=== PATIENT | male | born 1980 | race Caucasian/White ===

== ENCOUNTER 2019-08-08 01:53 | Outpatient (RCR) | payer OTHER, SELFPAY ==
[2019-07-18] MEDS: Normal Saline Flush 10 ML SYR IVP (12:46)
[2019-07-18 13:08] LABS: Abs Immature Grans 0.13 k/cumm (0.0-0.09); Absolute Eosinophil Count 0.03 k/cumm (0.0-0.7); Absolute Lymphocyte Count 0.81 k/cumm (1.2-3.4); Absolute Monocyte Count 0.01 k/cumm (0.11-0.7); Absolute Neutrophil Count 7.09 k/cumm (1.2-6.7); Eosinophils % 0.4; HCT 41.7 % (40.0-50.0); HGB 15.1 g/dL (13.5-17.5); Immature Grans % 1.6 %; Mean Corp. HGB Concentration 36.2 g/dL (32.0-36.0); Mean Corpuscular Hemoglobin 31.4 pg (27.0-33.0); Mean Corpuscular Volume 86.7 fL (80-95); Mean Platelet Volume 10.2 fL (8.0-11.0); Monocytes % 0.1; Neutrophils % 87.9; Platelet Count 244 x1000/uL (130-400); RBC 4.81 m/cumm (4.50-6.00); White Blood Cell Count 8.07 k/cumm (4.4-10.8)
[2019-07-18 13:22] LABS: ALT 56 U/L (16-63); AST 20 U/L (15-37); Albumin 4.2 g/dL (3.4-5.0); Alkaline Phosphatase 51 U/L (46-116); Anion Gap 10.7 mmol/L (3-11); BUN 32 mg/dL (7-18); Bilirubin, Total 1.3 mg/dL (0.2-1.0); CO2 26.3 mmol/L (21.0-32.0); CREATININE 1.24 mg/dL (0.70-1.30); Calcium 8.8 mg/dL (8.5-10.1); Chloride 100 mmol/L (98-107); Glucose 95 mg/dL (74-106); Potassium 3.5 mmol/L (3.5-5.1); Sodium 137 mmol/L (136-145); Total Protein 7.5 g/dL (6.4-8.2)
[2019-07-25] MEDS: Normal Saline Flush 10 ML SYR IVP (13:07)
[2019-07-25 13:26] LABS: Absolute Monocyte Count 0.08 k/cumm (0.11-0.7); HCT 34.1 % (40.0-50.0); HGB 11.8 g/dL (13.5-17.5); Mean Corp. HGB Concentration 34.6 g/dL (32.0-36.0); Mean Corpuscular Hemoglobin 30.6 pg (27.0-33.0); Mean Corpuscular Volume 88.3 fL (80-95); Mean Platelet Volume 10.3 fL (8.0-11.0); RBC 3.86 m/cumm (4.50-6.00); RBC Distribution Width 13.7 % (11.8-14.1)
[2019-07-25 13:46] LABS: ALT 73 U/L (16-63); AST 20 U/L (15-37); Albumin 4.1 g/dL (3.4-5.0); Alkaline Phosphatase 62 U/L (46-116); Anion Gap 8.8 mmol/L (3-11); BUN 12 mg/dL (7-18); Bilirubin, Total 1.6 mg/dL (0.2-1.0); CO2 27.2 mmol/L (21.0-32.0); CREATININE 1.11 mg/dL (0.70-1.30); Chloride 102 mmol/L (98-107); Glucose 98 mg/dL (74-106); Sodium 138 mmol/L (136-145); Total Protein 7.3 g/dL (6.4-8.2)
[2019-07-25 13:50] LABS: White Blood Cell Count 0.53 k/cumm (4.4-10.8)
[2019-07-25 13:51] LABS: Absolute Eosinophil Count 0.01 k/cumm (0.0-0.7); Absolute Neutrophil Count 0.03 k/cumm (1.2-6.7); Platelet Count 96 x1000/uL (130-400)
[2019-07-25 13:52] LABS: Diff Comment Manual Differential; Polychromasia Present
[2019-08-02] MEDS: Heparin 500 UNITS/5 ML SYRINGE IV (08:50)
[2019-08-02] MEDS: Normal Saline Flush 10 ML SYR IVP (08:50)
[2019-08-02 09:12] LABS: HCT 30.7 % (40.0-50.0); HGB 10.6 g/dL (13.5-17.5); Mean Corp. HGB Concentration 34.5 g/dL (32.0-36.0); Mean Corpuscular Hemoglobin 30.9 pg (27.0-33.0); Mean Corpuscular Volume 89.5 fL (80-95); Mean Platelet Volume 9.7 fL (8.0-11.0); Platelet Count 229 x1000/uL (130-400); RBC 3.43 m/cumm (4.50-6.00)
[2019-08-02 09:21] LABS: ALT 37 U/L (16-63); AST 37 U/L (15-37); Alkaline Phosphatase 120 U/L (46-116); Anion Gap 12.1 mmol/L (3-11); BUN 7 mg/dL (7-18); Bilirubin, Total 0.7 mg/dL (0.2-1.0); CO2 26.9 mmol/L (21.0-32.0); CREATININE 1.16 mg/dL (0.70-1.30); Chloride 103 mmol/L (98-107); Glucose 103 mg/dL (74-106); LDH 661 U/L (85-227); Magnesium 1.8 mg/dL (1.8-2.4); Potassium 3.4 mmol/L (3.5-5.1); Sodium 142 mmol/L (136-145); Total Protein 7.2 g/dL (6.4-8.2)
[2019-08-02 09:49] LABS: White Blood Cell Count 45.97 k/cumm (4.4-10.8)
[2019-08-02 09:50] LABS: Absolute Lymphocyte Count 1.84 k/cumm (1.2-3.4); Absolute Neutrophil Count 32.18 k/cumm (1.2-6.7)
[2019-08-02 09:51] LABS: Absolute Monocyte Count 1.84 k/cumm (0.11-0.7); Promyelocytes % 3 %
[2019-08-02 09:52] LABS: Anisocytosis 1+; Diff Comment Manual Differential; Nucleated RBC 4 /100WBC; Other Cells 1; Polychromasia Present
[2019-08-03 10:02] LABS: AFP Tumor Marker <2.5 ng/mL (<8.1)
[2019-08-04 19:27] LABS: Beta-HCG, Quant, Tumor Marker <0.6 IU/L (<1.4)
[2019-08-08] MEDS: Normal Saline Flush 10 ML SYR IVP (07:57)
[2019-08-08 08:00] LABS: Abs Immature Grans 0.38 k/cumm (0.0-0.09); HCT 30.6 % (40.0-50.0); HGB 10.3 g/dL (13.5-17.5); Mean Corp. HGB Concentration 33.7 g/dL (32.0-36.0); Mean Corpuscular Hemoglobin 31.5 pg (27.0-33.0); Mean Corpuscular Volume 93.6 fL (80-95); Mean Platelet Volume 10.6 fL (8.0-11.0); Platelet Count 284 x1000/uL (130-400); RBC 3.27 m/cumm (4.50-6.00); RBC Distribution Width 18.9 % (11.8-14.1); White Blood Cell Count 6.01 k/cumm (4.4-10.8)
[2019-08-08 08:06] LABS: ALT 65 U/L (16-63); AST 39 U/L (15-37); Albumin 3.9 g/dL (3.4-5.0); Alkaline Phosphatase 69 U/L (46-116); Anion Gap 8.1 mmol/L (3-11); BUN 4 mg/dL (7-18); Bilirubin, Total 0.8 mg/dL (0.2-1.0); CO2 28.9 mmol/L (21.0-32.0); CREATININE 1.38 mg/dL (0.70-1.30); Chloride 105 mmol/L (98-107); Estimated GFR 56.78 (mL/min/1.73m2); Glucose 100 mg/dL (74-106); Potassium 3.7 mmol/L (3.5-5.1); Sodium 142 mmol/L (136-145)
[2019-08-08 08:23] LABS: Absolute Basophil Count 0.12 k/cumm (0.0-0.2); Absolute Lymphocyte Count 1.26 k/cumm (1.2-3.4); Absolute Monocyte Count 0.84 k/cumm (0.11-0.7); Absolute Neutrophil Count 3.37 k/cumm (1.2-6.7); Nucleated RBC 4 /100WBC
[2019-08-08 08:24] LABS: Anisocytosis 2+; Basophilic Stippling Present; Diff Comment Manual Differential; Polychromasia Present
== END 2019-08-09 23:59 | disposition home or self-care (01) ==
LOC: INF 01:53
PROVIDERS: PCP Family Medicine; Visit Provider Internal Medicine
DX: C62.90 Malignant neoplasm of unspecified testis, unspecified whether descended or undescended (principal); Z45.2 Encounter for adjustment and management of vascular access device; C48.0 Malignant neoplasm of retroperitoneum
CPT/HCPCS: 36591; 80053; 82105; 83615; 83735; 84702; 85025

== ENCOUNTER 2019-09-05 01:37 | Outpatient (RCR) | payer OTHER, SELFPAY ==
[2019-08-23 13:31] LABS: HCT 22.6 % (40.0-50.0); HGB 7.4 g/dL (13.5-17.5); Mean Corp. HGB Concentration 32.7 g/dL (32.0-36.0); Mean Corpuscular Hemoglobin 31.1 pg (27.0-33.0); Mean Platelet Volume 10.2 fL (8.0-11.0); RBC 2.38 m/cumm (4.50-6.00); RBC Distribution Width 21.7 % (11.8-14.1)
[2019-08-23] MEDS: Heparin 500 UNITS/5 ML SYRINGE IV (13:39)
[2019-08-23] MEDS: Normal Saline Flush 10 ML SYR IVP (13:39)
[2019-08-23 13:43] LABS: ALT 33 U/L (16-63); AST 16 U/L (15-37); Albumin 3.9 g/dL (3.4-5.0); Alkaline Phosphatase 74 U/L (46-116); Anion Gap 11.2 mmol/L (3-11); BUN 7 mg/dL (7-18); Bilirubin, Total 1.4 mg/dL (0.2-1.0); CO2 25.8 mmol/L (21.0-32.0); CREATININE 1.14 mg/dL (0.70-1.30); Calcium 8.8 mg/dL (8.5-10.1); Chloride 104 mmol/L (98-107); Glucose 115 mg/dL (74-106); LDH 218 U/L (85-227); Magnesium 1.3 mg/dL (1.8-2.4); Potassium 3.4 mmol/L (3.5-5.1); Sodium 141 mmol/L (136-145)
[2019-08-23 14:00] LABS: White Blood Cell Count 0.89 k/cumm (4.4-10.8)
[2019-08-23 14:01] LABS: Absolute Lymphocyte Count 0.54 k/cumm (1.2-3.4); Platelet Count 134 x1000/uL (130-400)
[2019-08-23 14:02] LABS: Absolute Monocyte Count 0.26 k/cumm (0.11-0.7); Absolute Neutrophil Count 0.09 k/cumm (1.2-6.7); Anisocytosis 2+; Diff Comment Manual Differential; Nucleated RBC 3 /100WBC; Polychromasia Present
[2019-08-23 14:03] LABS: Poikilocytes 1+
[2019-08-24 08:46] LABS: AFP Tumor Marker 2.7 ng/mL (<8.1)
[2019-08-25 15:40] LABS: Beta-HCG, Quant, Tumor Marker <0.6 IU/L (<1.4)
[2019-09-05] MEDS: Normal Saline Flush 10 ML SYR IVP (07:48)
[2019-09-05 07:52] LABS: Abs Immature Grans 0.25 k/cumm (0.0-0.09); Absolute Basophil Count 0.04 k/cumm (0.0-0.2); Absolute Eosinophil Count 0.01 k/cumm (0.0-0.7); Absolute Lymphocyte Count 1.14 k/cumm (1.2-3.4); Absolute Monocyte Count 1.17 k/cumm (0.11-0.7); Absolute Neutrophil Count 9.95 k/cumm (1.2-6.7); Basophils % 0.3; Eosinophils % 0.1; HCT 32.9 % (40.0-50.0); HGB 10.7 g/dL (13.5-17.5); Lymphocytes % 9.1; Mean Corp. HGB Concentration 32.5 g/dL (32.0-36.0); Mean Corpuscular Hemoglobin 31.9 pg (27.0-33.0); Mean Corpuscular Volume 98.2 fL (80-95); Mean Platelet Volume 10.2 fL (8.0-11.0); Monocytes % 9.3; Neutrophils % 79.2; Platelet Count 182 x1000/uL (130-400); RBC 3.35 m/cumm (4.50-6.00); RBC Distribution Width 19.4 % (11.8-14.1); White Blood Cell Count 12.56 k/cumm (4.4-10.8)
[2019-09-05 08:08] LABS: ALT 35 U/L (16-63); AST 19 U/L (15-37); Albumin 3.8 g/dL (3.4-5.0); Alkaline Phosphatase 97 U/L (46-116); Anion Gap 10.9 mmol/L (3-11); BUN 5 mg/dL (7-18); Bilirubin, Total 0.7 mg/dL (0.2-1.0); CO2 27.1 mmol/L (21.0-32.0); CREATININE 1.09 mg/dL (0.70-1.30); Chloride 103 mmol/L (98-107); Glucose 105 mg/dL (74-106); Potassium 3.9 mmol/L (3.5-5.1); Sodium 141 mmol/L (136-145); Total Protein 7.1 g/dL (6.4-8.2)
[2019-09-05 08:30] LABS: Magnesium 1.7 mg/dL (1.8-2.4)
== END 2019-09-09 23:59 | disposition home or self-care (01) ==
LOC: INF 01:37
PROVIDERS: PCP Family Medicine; Visit Provider Internal Medicine
DX: C48.0 Malignant neoplasm of retroperitoneum (principal); C62.90 Malignant neoplasm of unspecified testis, unspecified whether descended or undescended; Z45.2 Encounter for adjustment and management of vascular access device
CPT/HCPCS: 36591; 80053; 82105; 83615; 83735; 84702; 85025

== ENCOUNTER 2019-10-04 01:24 | Outpatient (RCR) | payer OTHER, SELFPAY ==
[2019-09-20 08:35] LABS: MCH 30.5 pg (27.0-33.0); MCHC 34.2 % (32.0-36.0); MCV 89.4 fL (80-95); RBC 2.26 10^6/uL (4.36-5.78); RDW 14.3 % (11.8-14.1); RDW-SD 45.5 fL; WBC 5.99 10^3/uL (4.4-10.8)
[2019-09-20 08:59] LABS: ALT 22 U/L (16-63); AST 12 U/L (15-37); Albumin 3.5 g/dL (3.4-5.0); Alkaline Phosphatase 63 U/L (46-116); Anion Gap 10.2 mmol/L (3-11); BUN 12 mg/dL (7-18); CO2 27.8 mmol/L (21.0-32.0); CREATININE 1.38 mg/dL (0.70-1.30); Calcium 8.5 mg/dL (8.5-10.1); Chloride 97 mmol/L (98-107); Estimated GFR 56.78 (mL/min/1.73m2); Glucose 121 mg/dL (74-106); LDH 209 U/L (85-227); Magnesium 1.1 mg/dL (1.8-2.4); Sodium 135 mmol/L (136-145); Total Protein 6.9 g/dL (6.4-8.2)
[2019-09-20 09:03] LABS: Potassium 2.9 mmol/L (3.5-5.1)
[2019-09-20 09:12] LABS: HGB 6.9 g/dL (13.5-17.5)
[2019-09-20 09:13] LABS: HCT 20.2 % (40.0-50.0)
[2019-09-20 09:14] LABS: Platelet Count 32 10^3/uL (130-400)
[2019-09-20 09:15] LABS: Diff Comment Manual Differential; Metamyelocytes % 6; Myelocytes % 2; Nucleated RBC 2 %
[2019-09-20 09:16] LABS: Polychromasia Present
[2019-09-20 09:18] LABS: Absolute Neutrophil Count 3.95 10^3/uL (1.2-6.7); Bands % 20
[2019-09-20 09:19] LABS: Other Cells % 1
[2019-09-20] MEDS: Normal Saline Flush 10 ML SYR IVP (14:09)
[2019-09-21 16:30] LABS: Beta-HCG, Quant, Tumor Marker <0.6 IU/L (<1.4)
[2019-09-22] MEDS: Normal Saline Flush 10 ML SYR IVP (13:50)
[2019-09-22 13:59] LABS: Abs Immature Grans 3.77 10^3/uL (0.0-0.06); HCT 23.1 % (40.0-50.0); HGB 7.9 g/dL (13.5-17.5); MCH 31.3 pg (27.0-33.0); MCHC 34.2 % (32.0-36.0); MCV 91.7 fL (80-95); MPV 11.1 fL (8.0-11.0); RBC 2.52 10^6/uL (4.36-5.78); RDW 15.2 % (11.8-14.1); RDW-SD 49.1 fL; WBC 18.98 10^3/uL (4.4-10.8)
[2019-09-22 14:16] LABS: ALT 20 U/L (16-63); AST 15 U/L (15-37); Albumin 3.6 g/dL (3.4-5.0); Alkaline Phosphatase 70 U/L (46-116); Anion Gap 9.4 mmol/L (3-11); BUN 4 mg/dL (7-18); Bilirubin, Total 0.6 mg/dL (0.2-1.0); CO2 27.6 mmol/L (21.0-32.0); CREATININE 1.27 mg/dL (0.70-1.30); Calcium 8.7 mg/dL (8.5-10.1); Chloride 102 mmol/L (98-107); Glucose 97 mg/dL (74-106); Potassium 3.1 mmol/L (3.5-5.1); Sodium 139 mmol/L (136-145); Total Protein 6.7 g/dL (6.4-8.2)
[2019-09-22 14:17] LABS: Anisocytosis 1+; Diff Comment Manual Differential
[2019-09-22 14:18] LABS: Absolute Lymphocyte Count 1.52 10^3/uL (1.2-3.4); Absolute Monocyte Count 0.95 10^3/uL (0.1-0.8); Absolute Neutrophil Count 14.99 10^3/uL (1.2-6.7); Bands % 19; Metamyelocytes % 4; Myelocytes % 4; Nucleated RBC 0 %; Platelet Count 120 10^3/uL (130-400); Polychromasia Present
[2019-09-26] MEDS: Normal Saline Flush 10 ML SYR IVP (08:09)
[2019-09-26 08:16] LABS: Abs Immature Grans 1.46 10^3/uL (0.0-0.06); Absolute Monocyte Count 0.95 10^3/uL (0.1-0.8); HCT 24.4 % (40.0-50.0); MCH 31.4 pg (27.0-33.0); MCHC 32.8 % (32.0-36.0); MCV 95.7 fL (80-95); MPV 9.9 fL (8.0-11.0); Nucleated RBC 1 %; Platelet Count 266 10^3/uL (130-400); RBC 2.55 10^6/uL (4.36-5.78); RDW 18.2 % (11.8-14.1); RDW-SD 51.8 fL; WBC 11.93 10^3/uL (4.4-10.8)
[2019-09-26 08:32] LABS: ALT 21 U/L (16-63); AST 14 U/L (15-37); Albumin 3.4 g/dL (3.4-5.0); Alkaline Phosphatase 74 U/L (46-116); Anion Gap 11.2 mmol/L (3-11); BUN 9 mg/dL (7-18); Bilirubin, Total 0.4 mg/dL (0.2-1.0); CO2 26.8 mmol/L (21.0-32.0); CREATININE 1.19 mg/dL (0.70-1.30); Calcium 7.9 mg/dL (8.5-10.1); Chloride 106 mmol/L (98-107); Glucose 101 mg/dL (74-106); LDH 280 U/L (85-227); Magnesium 1.1 mg/dL (1.8-2.4); Potassium 3.1 mmol/L (3.5-5.1); Sodium 144 mmol/L (136-145); Total Protein 6.4 g/dL (6.4-8.2)
[2019-09-26 09:04] LABS: Absolute Lymphocyte Count 0.84 10^3/uL (1.2-3.4); Absolute Neutrophil Count 9.54 10^3/uL (1.2-6.7); Bands % 9; Metamyelocytes % 3; Myelocytes % 2
[2019-09-26 09:07] LABS: Anisocytosis 1+; Diff Comment Manual Differential; Polychromasia Present
[2019-10-04] MEDS: Normal Saline Flush 10 ML SYR IVP (12:40)
[2019-10-04 12:57] LABS: Abs Immature Grans 0.97 10^3/uL (0.0-0.06); HCT 25.6 % (40.0-50.0); HGB 8.5 g/dL (13.5-17.5); MCH 30.9 pg (27.0-33.0); MCHC 33.2 % (32.0-36.0); MCV 93.1 fL (80-95); MPV 9.6 fL (8.0-11.0); Nucleated RBC 0 %; Platelet Count 173 10^3/uL (130-400); RBC 2.75 10^6/uL (4.36-5.78); RDW 15.9 % (11.8-14.1); RDW-SD 52.5 fL; WBC 8.72 10^3/uL (4.4-10.8)
[2019-10-04 13:11] LABS: ALT 26 U/L (16-63); AST 8 U/L (15-37); Albumin 3.7 g/dL (3.4-5.0); Alkaline Phosphatase 75 U/L (46-116); Anion Gap 6.8 mmol/L (3-11); BUN 23 mg/dL (7-18); Bilirubin, Total 0.9 mg/dL (0.2-1.0); CO2 30.2 mmol/L (21.0-32.0); CREATININE 1.16 mg/dL (0.70-1.30); Chloride 99 mmol/L (98-107); Glucose 113 mg/dL (74-106); LDH 149 U/L (85-227); Magnesium 1.2 mg/dL (1.8-2.4); Sodium 136 mmol/L (136-145); Total Protein 6.5 g/dL (6.4-8.2)
[2019-10-04 13:15] LABS: Potassium 2.8 mmol/L (3.5-5.1)
[2019-10-04 13:16] LABS: Absolute Lymphocyte Count 0.44 10^3/uL (1.2-3.4); Absolute Neutrophil Count 8.11 10^3/uL (1.2-6.7); Bands % 5; Metamyelocytes % 1; Myelocytes % 1
[2019-10-04 13:17] LABS: Diff Comment Manual Differential; RBC Morphology Normal
== END 2019-10-10 23:59 | disposition home or self-care (01) ==
LOC: INF 01:24
PROVIDERS: PCP Family Medicine; Visit Provider Internal Medicine
DX: C62.90 Malignant neoplasm of unspecified testis, unspecified whether descended or undescended (principal); C48.0 Malignant neoplasm of retroperitoneum
CPT/HCPCS: 36591; 80053; 82105; 83615; 83735; 84702; 85025

== ENCOUNTER 2019-10-04 13:20 | Observation (INO) | payer OTHER, SELFPAY ==
[2019-10-04] VITALS (36 sets, daily range): BP systolic 78–117; BP diastolic 47–82; PULSE 82–163; RESP 8–34; TEMP 36.1–37.2; O2SAT 94–100
--- NOTE | 2019-10-04 13:15 | RT.EKG_ITS ---
APPROVED REPORT Exam: Resting ECG Patient Location: E HR:106 bpm ECG Measurements Heart Rate 106 AXIS VT 138 P 41 QRSd 81 QRS 13 QT 319 T 238 QTc 423 Conclusion Sinus tachycardia. Inferior infarct, age indeterminate...Q>35mS, T neg, II III aVF Nonspecific T abnormalities, lateral leads...T <-0.10mV, I aVL V5 V6
[2019-10-04] MEDS: MAGNESIUM SULFATE 2 GM/50 ML BAG IVPB ×2 (13:57→18:27)
[2019-10-04] MEDS: POTASSIUM CHLORIDE 20 MEQ/100 ML BAG 50 MEQ IVPB (13:58)
[2019-10-04] MEDS: Normal Saline 1,000 ML 1000 ML IV (14:00)
[2019-10-04] MEDS: Potassium Chloride 20 MEQ TABCR 40 MEQ PO (14:01)
--- NOTE | 2019-10-04 14:18 | DI.RAD_ITS ---
EXAM: XR PORTABLE CHEST AP CLINICAL HISTORY: syncope TECHNIQUE: COMPARISON: No exams were available for comparison FINDINGS: There is Port-A-Cath in position the tip of which overlies the SVC. Cardiac size is within normal li mits. The lungs are clear and well expanded. IMPRESSION: No evidence of acute process. RADIATION DOSE DELIVERED: Total DLP
[2019-10-04 14:19] LABS: Magnesium 1.2 mg/dL (1.8-2.4); Troponin I < 0.05 ng/mL (<0.06)
--- NOTE | 2019-10-04 15:11 | ED.GENADUL_ITS ---
Discharge Plan Disposition Patient Disposition: OTHER Condition: Serious Discharge Details Chief Complaint: AMS/LOC Clinical Impression: Syncope, Hypokalemia, Hypomagnesemia, Diarrhea Primary Care Provider: Dalia Villanueva ED Provider: Mayito Del Cid Home Meds and New Rx's Prescriptions: No Action cetirizine [Zyrtec] 10 mg Tablet 10 mg PO DAILY RF: 0 lorazepam 0.5 mg Tablet 0.5 mg PO Q6H PRN PRNRF: 0 fluconazole 50 mg Tablet 50 mg PO DAILY RF: 0 esomeprazole magnesium [Nexium] 40 mg Capsule,Delayed Release(Dr/Ec) 40 mg PO DAILY RF: 0 promethazine 25 mg Tablet 25 mg PO Q6H PRNRF: 0 potassium chloride 20 mEq Tablet Extended Release 20 meq PO DAILY RF: 0 magnesium oxide 400 mg magnesium Tablet 400 mg PO DAILY RF: 0 alprazolam [Xanax] 0.25 mg Tablet 0.25 mg PO DAILY PRNRF: 0 Medical Decision Making This is a rather unfortunate 39-year-old gentleman who was diagnosed with a retroperitoneal germ cell cancer approximately 3 months ago. He has gone through his chemotherapy and finished his last round on Thursday. Has needed supplemental IV hydration during this process. He had outpatient labs drawn today and was going to see his oncology team when he had a syncopal episode. This was witnessed, EMS was called. By the time patient came to the ER he was incontinent of both urine and stool. For nearly the first full hour he was in the ER he continued diarrhea. I was able to review the labs that were drawn just prior to arrival. Potassium 2.8, magnesium 1.2. Will obtain IV access, give IV fluids, replenish magnesium IV, potassium both IV and p.o., obtain EKG, troponin and urinalysis. Patient is afebrile there is no obvious infectious process. Heart rate is in the 120s, blood pressure soft 90s over 60s. He is awake, alert, able to answer my questions and mentating appropriately. Patient continued to have diarrhea while here in the ER. He did respond nicely to the IV fluid, heart rate now 103, blood pressure 104/62. He received 2 g IV magnesium, 20 IV potassium, 40 p.o. potassium. Laboratory values that were drawn prior to arrival reveal baseline anemia. 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 Glucose of 113. Troponin obtained here in the ER is less than 0.05. C. difficile pending Urinalysis pending. Options with patient and his . Patient has required hospitalization in the past with similar presentation. Generalized weakness, syncope, nausea, vomiting, diarrhea, dehydration, electrolyte abnormalities. I am concerned that he will continue to have the symptoms if he was to be discharged, can likely not tolerate adequate p.o. at this time. Will discuss the case with the hospitalist team for admission. Case was discussed with Dr. Lopez who is agreeable to admission at this time. Medical Records Medical records reviewed: Yes I reviewed the patient's medical records. Lab Data Lab results reviewed: Yes I reviewed the patient's lab results. Lab results narrative: 10/04/19 15:00 Stool Clostridioides difficile Screen - Pending Laboratory Tests Range/Units 10/04/19 10/04/19 13:51 15:00 Magnesium (1.8-2.4) mg/dL 1.2 L Troponin I (<0.06) ng/mL < 0.05 Stool Campylobacter PCR Cancelled Stool Salmonella PCR Cancelled Stool Shigella PCR Cancelled Shiga Toxin (PCR) Cancelled ECG Data Attestation: I personally reviewed and interpreted this ECG (s) as follows: Interpretation: Reviewed and interpreted with Dr. Mackey, please see his official report. Sinus tachycardia, ventricular 106. Nonspecific T wave abnormalities. No STEMI. HPI General Mode of arrival: EMS . Date/Time Provider Initiated Documentation: 10/04/19 13:29 . Limitations to Documentation: no limitations . Information obtained by: patient and family . HPI Narrative: This is a 39-year-old gentleman who presents via EMS for generalized weakness, nausea, vomiting, diarrhea, syncopal episode. He has a past medical history of a germ cell retroperitoneal cancer and is being evaluated at the [facility]. He finished his last chemotherapy on Thursday, Cisplaton and Etoposide. He was having a routine blood draw today here at our facility and then going to the cancer center for IV fluids which he has needed for supportive care throughout his treatment and a appointment with his oncology team. From the time he left our facility via private car and got to the [facility], he had a syncopal episode. Prior to the episode he reported feeling increasingly weak. Denied headache, chest pain, shortness of breath, numbness, tingling, weakness. Patient's reports that he had a near syncopal episode a few weeks ago after receiving chemotherapy and ended up being admitted in [place]. Patient does report that roughly 6 weeks ago he was evaluated and found to have a low-grade fever and placed on antibiotics at that time, was hospitalized. Unsure of the antibiotics he was given. Has not been on antibiotics since that time. Related Data Home Medications Medication Instructions Recorded Confirmed alprazolam [Xanax] 0.25 mg PO DAILY PRN 10/04/19 10/04/19 cetirizine [Zyrtec] 10 mg PO DAILY 10/04/19 10/04/19 esomeprazole magnesium [Nexium] 40 mg PO DAILY 10/04/19 10/04/19 fluconazole 50 mg PO DAILY 10/04/19 10/04/19 lorazepam 0.5 mg PO Q6H PRN PRN 10/04/19 10/04/19 magnesium oxide 400 mg PO DAILY 10/04/19 potassium chloride 20 meq PO DAILY 10/04/19 10/04/19 promethazine 25 mg PO Q6H PRN 10/04/19 10/04/19 Allergies Allergy/AdvReac Type Severity Reaction Status Date / Time codeine AdvReac Nausea Unverified 10/04/19 13:29 sulfates AdvReac Other (See Uncoded 10/04/19 13:29 Comment) General Stated Complaint: AMS/LOC KAMI: 2 Review of Systems Constitutional Constitutional: Reports fatigue, Denies fever(s) and Reports weakness (Generalized) Eyes Eyes: Denies change in vision ENT Ears, Nose, Mouth, and Throat: Denies neck pain Cardiovascular Cardiovascular: Denies chest pain and Denies dyspnea Respiratory Respiratory: Denies cough and Denies dyspnea Gastrointestinal Gastrointestinal: Reports abdominal pain, Denies melena, Denies hematochezia, Denies coffee ground emesis, Reports cramping, Reports diarrhea, Reports nausea, Reports vomiting and Denies hematemesis Genitourinary Genitourinary: Denies dysuria Musculoskeletal Musculoskeletal: Denies neck pain, Denies numbness and Denies tingling Integumentary/Breasts Skin/Breast: Denies rash Neurologic Neurologic: Denies numbness, Denies tingling and Reports weakness (Generalized) Endocrine Endocrine: Reports fatigue Hematologic/Lymphatic Hematologic/Lymphatic: Denies easy bleeding and Denies easy bruising [facility] Surgical History H/O esophagogastroduodenoscopy (Chronic) History of cholecystectomy (Chronic) Social History Smoking/Tobacco Use Status: Never Alcohol Intake: never Substance use type: does not use Additional Social history: unable to answer r/t in room. Exam Const General: cooperative, comfortable and in distress Orientation: alert, awake and oriented x3 HENMT Head: normal to inspection, normocephalic and atraumatic Ears: hearing grossly normal bilaterally Mouth: moist mucous membranes abnormal (Slightly dry) Eyes General: appearance normal, both eyes and all related structures Alignment and Position: alignment normal Periorbital: periorbital findings normal Eyelids: eyelids normal Conjunctivae: conjunctivae normal Sclera: sclerae normal Cornea: corneas normal Pupils: PERRL EOM: EOM intact bilaterally Direct ophthalmoscopy: normal light reflex Neck Neck: normal visual inspection, full ROM, no meningeal signs, trachea midline, supple and nontender Chest Chest: other (Port right upper chest, appears unremarkable) Resp Effort & Inspection: normal respiratory effort and able to speak in complete sentences Auscultation: clear to auscultation bilaterally Cardio Rate: tachycardic (120s) Rhythm: regular rhythm GI Inspection: normal to inspection Palpation: soft, not firm, no guarding, not rigid and tender (Diffuse, mild) Auscultation: normal bowel sounds Back/Spine/Pelvis Back: No back tenderness Skin General skin exam: no rashes or lesions noted Neuro General: patient alert, patient awake, patient oriented x3, moves all extremities and no focal motor deficits Cranial Nerves: CN's II-XI intact bilaterally Cognition: normal cognition Speech: speech normal Motor: muscle tone normal throughout and strength 5/5 throughout Sensory Exam: no sensory deficits noted Extrem General: normal to inspection, full ROM and capillary refill normal Psych Appearance: grossly normal Mental Status: mental status grossly normal Course Vital Signs Vital signs: Vital Signs Temperature 36.3 C L 10/04/19 13:24 Pulse 126 H 10/04/19 13:24 Respiratory Rate 20 10/04/19 13:24 Blood Pressure 97/47 L 08/25/20 13:24 Pulse Oximetry 99 10/04/19 13:24 Temperature 36.3 C L 10/04/19 13:24 Temperature Source Skin 10/04/19 13:24 Pulse 126 H 10/04/19 13:24 Respiratory Rate 20 10/04/19 13:24 Respiratory Effort 10/04/19 14:53 Blood Pressure 97/47 L 10/04/19 13:24 Blood Pressure Position Sitting 10/04/19 13:24 Pulse Oximetry 99 10/04/19 13:24 Oxygen Delivery Method Room Air 10/04/19 13:24 Oxygen Flow Rate 0 10/04/19 13:24 Pain Level 8 10/04/19 13:24 Lab/Test Results Lab/Test Results: Laboratory Tests Range/Units 10/04/19 13:51 Magnesium (1.8-2.4) mg/dL 1.2 L Troponin I (<0.06) ng/mL < 0.05
--- NOTE | 2019-10-04 15:46 | HPE_ITS ---
Date of service: 10/04/19 Time of Service: 15:46 Assessment and Plan Assessment and plan (1) Syncope: Start date: 10/04/19 Start time: 15:56 Status: Chronic Assessment and plan: Patient has germ cell carcinoma and has just finished last round of chemo on Thursday. Reported here for lab work today, on is way to his oncology appt he had a witnessed syncopal episode. EMS was called and he was brought to ED. He appears dehydrated with loss of electrolytes through stool hypokalemia at 2.8 and mag 1.2. He will be on telemetry with IV hydration Replete mag and potassium with both IV and PO Antiemetics. During course of chemo he has required IV hydration (2) Hypokalemia: Start date: 10/04/19 Start time: 16:02 Status: Acute Assessment and plan: From above. Repelete with Both IV and PO, recheck in am. (3) Hypomagnesemia: Start date: 10/04/19 Start time: 16:02 Status: Acute Assessment and plan: as above, (4) Diarrhea: Start date: 10/04/19 Start time: 16:02 Status: Acute Assessment and plan: Contributing to electrolyte loss will replete electrolytes, hydrate and monitor Qualifiers: Diarrhea type: unspecified type Qualified Code(s): R19.7 - Diarrhea, unspecified (5) Germ cell tumor of retroperitoneum: Start date: 10/04/19 Start time: 16:03 Status: Acute Assessment and plan: Just finished his last round of chemotherapy. Above case discussed with Dr. Lopez who is in agreement History of Present Illness History of Present Illness Chief Complaint: Syncope, Dehydration, Electrolyte imbalance Narrative: 39 y.o male with diagnosis of retroperitoneal germ cell cancer presented to ED after having syncopal episode. Mr. Renee received his last round of chemotherapy on thursday, reported to [facility] for lab draw today and was then going to see his oncologist. While on his way to his appointment patient had a witnessed syncopal episode, EMS called and he was brought to the [facility] ED. On arrival he was incontinent of both urine and stool. He did have large amounts of diarrhea while in ED. Labs drawn prior to arrival show a potassium of 2.8, mag of 1.2, hemoglobin 8.5. We have been asked to admit patient for further management. Patient will be admitted to m/s obs with IV hydration, electrolyte repletetion, antibemetics and monitoring of symptoms. Telemetry will be ordered due to low mag. Will monitor electrolytes. Recheck bmp in am along with mag. Review of Systems All systems reviewed & are unremarkable except as noted in HPI and below PFSH Surgical History H/O esophagogastroduodenoscopy (Chronic) History of cholecystectomy (Chronic) Social History Smoking/Tobacco Use Status: Never Alcohol Intake: never Substance use type: does not use Additional Social history: unable to answer r/t in room. Meds Home Medications and Allergies Home Medications Medication Instructions Recorded Confirmed Type alprazolam [Xanax] 0.25 mg PO DAILY PRN 10/04/19 10/04/19 History cetirizine [Zyrtec] 10 mg PO DAILY 10/04/19 10/04/19 History esomeprazole magnesium [Nexium] 40 mg PO DAILY 10/04/19 10/04/19 History fluconazole 50 mg PO DAILY 10/04/19 10/04/19 History lorazepam 0.5 mg PO Q6H PRN PRN 10/04/19 10/04/19 History magnesium oxide 400 mg PO DAILY 10/04/19 History potassium chloride 20 meq PO DAILY 10/04/19 10/04/19 History promethazine 25 mg PO Q6H PRN 10/04/19 10/04/19 History Allergies Allergy/AdvReac Type Severity Reaction Status Date / Time codeine AdvReac Nausea Unverified 10/04/19 13:29 sulfates AdvReac Other (See Uncoded 10/04/19 13:29 Comment) Exam Narrative Exam Narrative: Pleasant ill appearing young pale male. Bald head, normocephalic, lying on the stretcher looking like he does not feel well. Opens eyes to name, PERRLA. HR regular slightly elevated HR. LSC, no wheezing, rhonchi or rales. No slur in speech, oriented x 3. Abd soft nontender. Diarrhea has stopped. Neuros intact. No clubbing, cyanosis or edema to any extremities. Results Labs Labs: Laboratory Results - last 24 hr 10/04/19 10/04/19 13:51 15:00 Magnesium 1.2 L Troponin I < 0.05 Stool Campylobacter PCR Cancelled Stool Salmonella PCR Cancelled Stool Shigella PCR Cancelled Shiga Toxin (PCR) Cancelled Last Vital Signs Temp 36.3 C L 10/04/19 13:24 Pulse 93 H 10/04/19 15:01 Resp 18 10/04/19 15:10 BP 109/74 10/04/19 15:01 Pulse Ox 100 10/04/19 15:10 COVID-19 Screening Have you,or household,traveled outside [place] in last 14 days?: Yes Had IN PERSON contact w/suspected or confirmed C-19 person: No
[2019-10-04 17:33] LABS: Troponin I < 0.05 ng/mL (<0.06)
[2019-10-04] MEDS: Magnesium Oxide 400 MG TAB 800 MG PO (17:42)
[2019-10-04] MEDS: POTASSIUM CHLORIDE 10 MEQ/100 ML BAG 100 MEQ IVPB ×3 (17:42→21:13)
[2019-10-04] MEDS: Normal Saline 1,000 ML 120 ML IV (17:42)
[2019-10-04] MEDS: POTASSIUM CHLORIDE/0.9% NACL 1,000 ML 125 MEQ IV (21:14)
[2019-10-04 21:57] LABS: Potassium 3.2 mmol/L (3.5-5.1)
[2019-10-05] VITALS (17 sets, daily range): BP systolic 94–114; BP diastolic 58–88; PULSE 71–93; RESP 16–18; TEMP 36.4–37; O2SAT 96–100
[2019-10-05] MEDS: POTASSIUM CHLORIDE/0.9% NACL 1,000 ML 125 MEQ IV (05:56)
[2019-10-05 07:33] LABS: Abs Immature Grans 0.01 10^3/uL (0.0-0.06); MCH 30.8 pg (27.0-33.0); MCV 93.4 fL (80-95); MPV 9.7 fL (8.0-11.0); Nucleated RBC 0 %; RBC 1.98 10^6/uL (4.36-5.78); RDW 15.5 % (11.8-14.1); RDW-SD 50.8 fL
[2019-10-05 07:50] LABS: Anion Gap 3.2 mmol/L (3-11); BUN 21 mg/dL (7-18); CO2 29.8 mmol/L (21.0-32.0); CREATININE 0.94 mg/dL (0.70-1.30); Calcium 8.1 mg/dL (8.5-10.1); Chloride 104 mmol/L (98-107); Glucose 93 mg/dL (74-106); Magnesium 1.5 mg/dL (1.8-2.4); Potassium 3.6 mmol/L (3.5-5.1); Sodium 137 mmol/L (136-145)
[2019-10-05 08:00] LABS: HGB 6.1 g/dL (13.5-17.5); WBC 0.89 10^3/uL (4.4-10.8)
[2019-10-05 08:01] LABS: HCT 18.5 % (40.0-50.0)
[2019-10-05 08:02] LABS: Absolute Neutrophil Count 0.64 10^3/uL (1.2-6.7)
[2019-10-05 08:03] LABS: Absolute Lymphocyte Count 0.23 10^3/uL (1.2-3.4); Metamyelocytes % 2
[2019-10-05 08:04] LABS: Diff Comment Manual Differential
[2019-10-05 08:05] LABS: Anisocytosis 1+; Hypochromasia 2+
[2019-10-05 08:06] LABS: Poikilocytes 1+
[2019-10-05] MEDS: Magnesium Oxide 400 MG TAB 800 MG PO (08:22)
[2019-10-05] MEDS: Esomeprazole 40 MG CAPCR PO (08:22)
[2019-10-05] MEDS: Fluconazole 100 MG TAB 200 MG PO (08:22)
[2019-10-05] MEDS: MAGNESIUM SULFATE 4 GM/100 ML BAG IVPB (08:44)
[2019-10-05] MEDS: Normal Saline Flush 10 ML SYR IVP (08:45)
[2019-10-05 09:13] LABS: COVID-19 RT-PCR UVMMC Result Negative (Negative)
[2019-10-05] MEDS: Acetaminophen 325 MG TAB 650 MG PO (11:13)
[2019-10-05] MEDS: diphenhydrAMINE 25 MG CAP PO (11:13)
--- NOTE | 2019-10-05 13:43 | PGE_ITS ---
Date of Service Date of service: 10/05/19 Time of Service: 13:43 Assessment and Plan Assessment and plan (1) Syncope: Start date: 10/05/19 Start time: 15:29 Status: Chronic Assessment and plan: Feeling better today after one unit transfused, better color, cbc 6.1 hemoglobin, WBC 0.89, 2 units PRBC transfusing, Spoke with Oncologist see note. Nupogen not needed, recently dosed. Will repeat CBC 6 hours after 2nd unit He is having vagal response with diarrhea, likely why he passed out yesterday. Continue hydration, tolerating food. Qualifiers: Syncope type: vasovagal syncope Qualified Code(s): R55 - Syncope and collapse (2) Hypokalemia: Start date: 10/05/19 Start time: 15:33 Status: Resolved Assessment and plan: Resolved with repeletion continue to monitor and recheck in am (3) Hypomagnesemia: Start date: 10/05/19 Start time: 15:33 Status: Acute Assessment and plan: 1.5 today repleted with IV mag will recheck level in am (4) Diarrhea: Start date: 10/05/19 Start time: 15:34 Status: Acute Assessment and plan: Contributing to electrolyte loss will replete electrolytes, hydrate and monitor One episode today with vagal response, did not pass out, he did however have an episode of feeling funny, diaphoretic then the sensation of having to have a BM, defacated and felt better. Qualifiers: Diarrhea type: unspecified type Qualified Code(s): R19.7 - Diarrhea, unspecified (5) Germ cell tumor of retroperitoneum: Start date: 10/05/19 Start time: 15:36 Status: Acute Assessment and plan: Just finished his last round of chemotherapy. Likely in the [place] period Above case discussed with Dr. Lopez who is in agreement Subjective Subjective Patient reports: feels better Interval history since last seen: Laying in bed. Pale, states he did not sleep last night, though he does feel better. Spoke about am cbc. He agrees to transfusion. Spoke with Dr. Becker from oncology he recently had nupogen does not need any at this time. He felt there could be a septic component however lactate normal and no signs or symptoms of sepsis. Will recheck HH tonight. Keep overnight and possibly discharge in am. He denies CP, SOB, N/V/D. Exam Narrative Exam Narrative: Pleasant ill appearing young pale male lying in bed with back at 90 degree angle. No vomiting or diarrhea overnight. Bald head, normocephalic. Opens eyes to name, PERRLA. HR regular slightly elevated HR. LSC, no wheezing, rhonchi or rales. No slur in speech, oriented x 3. Abd soft nontender BSx4. Neuros intact. No clubbing, cyanosis or edema to any extremities. Objective Objective Clinical Data: Abnormal lab results 10/04/19 10/04/19 10/05/19 Range/Units 13:51 21:05 07:14 WBC (4.4-10.8) 10^3/uL RBC (4.36-5.78) 10^6/uL Hgb (13.5-17.5) g/dL Hct (40.0-50.0) % RDW (11.8-14.1) % Plt Count (130-400) 10^3/uL Absolute Neutrophils (1.2-6.7) 10^3/uL Absolute Lymphocytes (1.2-3.4) 10^3/uL Absolute Monocytes (0.1-0.8) 10^3/uL Potassium 3.2 L (3.5-5.1) mmol/L BUN 21 H (7-18) mg/dL Calcium 8.1 L (8.5-10.1) mg/dL Magnesium 1.2 L 1.5 L (1.8-2.4) mg/dL Crossmatch 10/05/19 10/05/19 Range/Units 07:14 09:51 WBC 0.89 L* D (4.4-10.8) 10^3/uL RBC 1.98 L (4.36-5.78) 10^6/uL Hgb 6.1 L* D (13.5-17.5) g/dL Hct 18.5 L* D (40.0-50.0) % RDW 15.5 H (11.8-14.1) % Plt Count 81 L D (130-400) 10^3/uL Absolute Neutrophils 0.64 L (1.2-6.7) 10^3/uL Absolute Lymphocytes 0.23 L (1.2-3.4) 10^3/uL Absolute Monocytes 0.00 L (0.1-0.8) 10^3/uL Potassium (3.5-5.1) mmol/L BUN (7-18) mg/dL Calcium (8.5-10.1) mg/dL Magnesium (1.8-2.4) mg/dL Crossmatch See Detail Vital Signs Temperature 36.6 C 10/05/19 12:56 Temperature Source Tympanic 10/05/19 07:53 Pulse 82 10/05/19 12:56 Pulse Rhythm Regular 10/05/19 08:20 Pulse 108 H 10/04/19 16:10 Respiratory Rate 18 10/05/19 12:56 Respiratory Effort Non-Labored 10/05/19 08:20 Respiratory Depth Normal 10/05/19 08:20 Respiratory Pattern Normal 10/05/19 08:20 Blood Pressure 107/74 10/05/19 12:56 Blood Pressure Mean 72 10/04/19 16:01 Blood Pressure Position Sitting 10/04/19 13:24 Pulse Oximetry 99 10/05/19 12:56 Oxygen Delivery Method Room Air 10/05/19 12:56 Oxygen Flow Rate 0 10/05/19 12:56 Pain Level 0 10/05/19 07:53 Comment 10/05/19 03:51 Intake & Output 10/04/19 10/05/19 10/05/19 23:59 11:59 23:59 Intake Total 1341.667 / 9184.632 7039 / 1350 250 / 1350 Output Total 1400 / 1400 Balance -58.333 / -58.333 1100 / 1350 250 / 1350 Weight 104.326 kg Intake: IV 1341.667 / 9041.220 8335 / 1100 Blood Product 250 / 250 Rbc Leuko Reduced Unit 250 / 250 [id number] Output: Urine 1400 / 1400 Other: Urine Color Yellow Urine Appearance Clear Clear Urine Odor Normal Voiding Methods Urinal Laboratory Results WBC 0.89 10^3/uL (4.4-10.8) L* D 10/05/19 07:14 RBC 1.98 10^6/uL (4.36-5.78) L 10/05/19 07:14 Hgb 6.1 g/dL (13.5-17.5) L* D 10/05/19 07:14 Hct 18.5 % (40.0-50.0) L* D 10/05/19 07:14 MCV 93.4 fL (80-95) 10/05/19 07:14 MCH 30.8 pg (27.0-33.0) 10/05/19 07:14 MCHC 33.0 % (32.0-36.0) 10/05/19 07:14 RDW 15.5 % (11.8-14.1) H 10/05/19 07:14 Plt Count 81 10^3/uL (130-400) L D 10/05/19 07:14 MPV 9.7 fL (8.0-11.0) 10/05/19 07:14 Immature Gran % See Differential 10/05/19 07:14 Neutrophils % 72.0 10/05/19 07:14 Lymphocytes % 26.0 10/05/19 07:14 Monocytes % 0.0 10/05/19 07:14 Eosinophils % 0.0 10/05/19 07:14 Basophils % 0.0 10/05/19 07:14 Metamyelocytes % 2 10/05/19 07:14 Nucleated RBC % 0 % 10/05/19 07:14 Absolute Neutrophils 0.64 10^3/uL (1.2-6.7) L 10/05/19 07:14 Absolute Lymphocytes 0.23 10^3/uL (1.2-3.4) L 10/05/19 07:14 Absolute Monocytes 0.00 10^3/uL (0.1-0.8) L 10/05/19 07:14 Absolute Eosinophils 0.00 10^3/uL (0.0-0.7) 10/05/19 07:14 Absolute Basophils 0.00 10^3/uL (0.0-0.2) 10/05/19 07:14 RBC Morphology See below 10/05/19 07:14 Hypochromasia 2+ 10/05/19 07:14 Poikilocytosis 1+ 10/05/19 07:14 Anisocytosis 1+ 10/05/19 07:14 Sodium 137 mmol/L (136-145) 10/05/19 07:14 Potassium 3.6 mmol/L (3.5-5.1) 10/05/19 07:14 Chloride 104 mmol/L (98-107) 10/05/19 07:14 Carbon Dioxide 29.8 mmol/L (21.0-32.0) 10/05/19 07:14 Anion Gap 3.2 mmol/L (3-11) 10/05/19 07:14 BUN 21 mg/dL (7-18) H 10/05/19 07:14 Creatinine 0.94 mg/dL (0.70-1.30) 10/05/19 07:14 Estimated GFR/1.73 m2 >= 60.00 (mL/min/1.73m2) 10/05/19 07:14 Glucose 93 mg/dL (74-106) 10/05/19 07:14 Lactate 1.0 mmol/L (0.6-1.4) 10/05/19 09:51 Calcium 8.1 mg/dL (8.5-10.1) L 10/05/19 07:14 Magnesium 1.5 mg/dL (1.8-2.4) L 10/05/19 07:14 Troponin I < 0.05 ng/mL (<0.06) 10/04/19 16:35 Stool Campylobacter PCR Cancelled 10/04/19 15:00 Stool Salmonella PCR Cancelled 10/04/19 15:00 Stool Shigella PCR Cancelled 10/04/19 15:00 COVID-19 PCR Negative (Negative) 10/04/19 16:20 Nasopharyn COVID-19 PCR Not Applicable 10/04/19 16:20 Shiga Toxin (PCR) Cancelled 10/04/19 15:00 Ref Test Perform Site [facility] 10/04/19 16:20 Patient ABO/Rh O Positive 10/05/19 09:51 Antibody Screen Negative 10/05/19 09:51 Crossmatch See Detail 10/05/19 09:51
[2019-10-05] MEDS: Dicyclomine 10 MG CAP PO ×2 (16:59→19:09)
[2019-10-05] MEDS: Potassium Chloride 20 MEQ TABCR PO (19:09)
[2019-10-06] MEDS: POTASSIUM CHLORIDE/0.9% NACL 1,000 ML 125 MEQ IV (01:45)
[2019-10-06 02:27] LABS: HGB 7.2 g/dL (13.5-17.5)
[2019-10-06 02:41] LABS: HCT 20.9 % (40.0-50.0)
[2019-10-06 03:28] VITALS: BP 103/68; PULSE 91; RESP 18; TEMP 36.6; O2SAT 99
[2019-10-06 07:35] VITALS: BP 104/75; PULSE 91; RESP 18; TEMP 36.9; O2SAT 98
[2019-10-06 07:58] LABS: Absolute Lymphocyte Count 0.19 10^3/uL (1.2-3.4); Absolute Monocyte Count 0.02 10^3/uL (0.1-0.8); HGB 7.1 g/dL (13.5-17.5); Lymphocytes % 51.4; MCH 30.6 pg (27.0-33.0); MCHC 34.1 % (32.0-36.0); MCV 89.7 fL (80-95); MPV 10.1 fL (8.0-11.0); Monocytes % 5.4; Neutrophils % 43.2; Nucleated RBC 0 %; RBC 2.32 10^6/uL (4.36-5.78); RDW 14.5 % (11.8-14.1); RDW-SD 46.3 fL
[2019-10-06 07:59] LABS: Anion Gap 3.7 mmol/L (3-11); BUN 14 mg/dL (7-18); CO2 30.3 mmol/L (21.0-32.0); Calcium 8.1 mg/dL (8.5-10.1); Chloride 104 mmol/L (98-107); Glucose 95 mg/dL (74-106); Magnesium 1.2 mg/dL (1.8-2.4); Potassium 3.7 mmol/L (3.5-5.1); Sodium 138 mmol/L (136-145)
[2019-10-06] MEDS: Esomeprazole 40 MG CAPCR PO (08:19)
[2019-10-06] MEDS: Fluconazole 100 MG TAB 200 MG PO (08:19)
[2019-10-06] MEDS: Magnesium Oxide 400 MG TAB 800 MG PO ×2 (08:19→08:59)
[2019-10-06] MEDS: Potassium Chloride 20 MEQ TABCR PO ×2 (08:20→13:41)
[2019-10-06] MEDS: Dicyclomine 10 MG CAP PO ×2 (08:20→13:41)
[2019-10-06] MEDS: MAGNESIUM SULFATE 4 GM/100 ML BAG IVPB (08:59)
[2019-10-06 09:05] LABS: WBC 0.37 10^3/uL (4.4-10.8)
[2019-10-06 09:06] LABS: HCT 20.8 % (40.0-50.0); Platelet Count 43 10^3/uL (130-400)
[2019-10-06 09:08] LABS: Absolute Neutrophil Count 0.16 10^3/uL (1.2-6.7); Diff Comment Agrees w/ Instrument; Hypochromasia 2+
--- NOTE | 2019-10-06 09:32 | DSE_ITS ---
Date of service: 10/06/19 Time of Service: 09:33 DS: Diagnosis Discharge Diagnosis (1) Syncope: Start date: 10/06/19 Start time: 09:33 Status: Chronic Asessment and Plan: In setting of electrolyte imbalance and vagal response. He did require 2 units PRBC yesterday. He did receive his last round of chemo on Thursday, he appears to be in the ovidio period. Syncope also seems to corralate with having a BM. Patient educated on vagal response. Feeling great would like to go home. (2) Hypokalemia: Start date: 10/06/19 Start time: 09:36 Status: Resolved Asessment and Plan: Resolved. (3) Hypomagnesemia: Start date: 10/06/19 Start time: 09:36 Status: Acute Asessment and Plan: Mag is low today, this appears to be chronic during his chemo rounds. He is on PO, will increase po to BID and follow up with Dr. Becker on Thursday as planned. Repleted with po and IV mag (4) Diarrhea: Start date: 10/06/19 Start time: 09:37 Status: Resolved Asessment and Plan: He had formed BM today, diarrhea appears to have resolved. (5) Germ cell tumor of retroperitoneum: Start date: 10/06/19 Start time: 09:38 Status: Acute Asessment and Plan: Finished last round of chemo on Thursday. Now in Ovidio period. He feels well. Will need to follow neutropenic precautions do not leave house, any visitors need to wear a mask and wash hands regularly, no fresh fruit or vegetables, florentino. Above case discussed with Dr. Lopez who is in agreement. Discharge Plan Disposition Patient Disposition: HOME Condition: Improving Discharge Details Chief Complaint: AMS/LOC Clinical Impression: Syncope, Hypokalemia, Hypomagnesemia, Diarrhea Reason For Visit: SYNCOPE, DEHYDRATION, ELECTROLYTE IMBALANCE Admit Date/Time: 10/04/19 15:30 Admit Provider: Mayito Lopez Attending Provider: Mayito Lopez Primary Care Provider: Dalia Villanueva ED Provider: Mayito Del Cid Hospital Course Hospital Course: 39 y.o male with diagnosis of retroperitoneal germ cell cancer presented to ED after having syncopal episode. Mr. Renee received his last round of chemotherapy on thursday, reported to [facility] for lab draw and was then going to see his oncologist. While on his way to his appointment patient had a witnessed syncopal episode, EMS called and he was brought to the [facility] ED. On arrival he was incontinent of both urine and stool. He did have large amounts of diarrhea while in ED. Labs drawn prior to arrival revealed a potassium of 2.8, mag of 1.2, hemoglobin 8.5. He was admitted for further management Over course of treatment wbc dropped to 0.89 with ANC 0.64 H/H 6.1, and 18.5. mag was 1.5. He did receive 2 units of blood. Spoke with oncology, no nupogen needed he recently finished a patch. Today he reports feeling better he looks well, no signs or symptoms of infections hemoglobin 7.1, mag is 1.2 repleted with both IV and po, will increase dose to BID at home. He would like to be discharged he feels good and knows he has to go home and rest. No signs or symptoms of illness or infections. At this time given lack of immunity patient is safer at home. He will need to follow neutropenic precautions, recommend he stay home, any visitors wear a mask, he wash his hands regularly, no fresh fruits or vegetables, no fresh florentino. Follow up with oncologist Thursday as planned. Home Meds and New Rx's Prescriptions: New dicyclomine 10 mg Capsule 10 mg PO QID Qty: 30 RF: 0 Continued cetirizine [Zyrtec] 10 mg Tablet 10 mg PO DAILY RF: 0 lorazepam 0.5 mg Tablet 0.5 mg PO Q6H PRN PRNRF: 0 fluconazole 50 mg Tablet 50 mg PO DAILY RF: 0 esomeprazole magnesium [Nexium] 40 mg Capsule,Delayed Release(Dr/Ec) 40 mg PO DAILY RF: 0 promethazine 25 mg Tablet 25 mg PO Q6H PRNRF: 0 potassium chloride 20 mEq Tablet Extended Release 20 meq PO DAILY RF: 0 magnesium oxide 400 mg magnesium Tablet 400 mg PO DAILY RF: 0 alprazolam [Xanax] 0.25 mg Tablet 0.25 mg PO DAILY PRNRF: 0 Discharge Instructions Instructions: Hyperkalemia (DC), Neutropenia (DC), Neutropenic Precautions (GEN), Hypermagnesemia (DC) Additional Instructions: Follow Neutropenic precautions, at this time you have very little ability to fight infections or illnesses, it is important you try to stay home, wash your hands regularly, any visitors should wear a mask, no fresh fruit or vegetables. Increase you magnesium dose to twice a day Follow up with Dr. Charles on Thursday. Stand Alone Forms: Nursing Discharge Form Activity:: Activity as Tolerated Equipment/Supplies:: No Equipment Needed Diet:: As Tolerated Discharge Orders Discharge Orders: Discharge Order (Routine); Ordered 10/06/19 Ordered By: Sofia Oates DS: Summary Status at Discharge Functional status at discharge: independent ambulation Overall status at discharge: patient is progressing back to baseline Mental Status: mental status grossly normal Speech and Movement: speech and movement normal Mood: congruent mood Affect: normal affect Exam Narrative Exam Narrative: Pleasant ill appearing young color improving; male sitting up with back at 90 degree angle. No vomiting or diarrhea overnight. Bald head, normocephalic. Opens eyes to name, PERRLA. HR regular slightly elevated HR. LSC, no wheezing, rhonchi or rales. No slur in speech, oriented x 3. Abd soft nontender BSx4. Neuros intact. No clubbing, cyanosis or edema to any extremities. Psych Mental Status: mental status grossly normal Speech and Movement: speech and movement normal Mood: congruent mood Affect: normal affect DS: Data Vitals/I&O Vitals and I&O: Vital Signs Temperature 36.9 C 10/06/19 07:35 Temperature Source Tympanic 10/06/19 07:35 Pulse 91 H 10/06/19 07:35 Pulse Rhythm Regular 10/06/19 08:20 Pulse 108 H 10/04/19 16:10 Respiratory Rate 18 10/06/19 07:35 Respiratory Effort Non-Labored 10/06/19 08:20 Respiratory Depth Normal 10/06/19 08:20 Respiratory Pattern Normal 10/06/19 08:20 Blood Pressure 104/75 10/06/19 07:35 Blood Pressure Mean 72 10/04/19 16:01 Blood Pressure Position Sitting 10/04/19 13:24 Pulse Oximetry 98 10/06/19 07:35 Oxygen Delivery Method Room Air 10/06/19 07:35 Oxygen Flow Rate 0 10/06/19 07:35 Pain Level 0 10/06/19 07:35 Comment 10/05/19 03:51 Intake & Output 10/05/19 10/05/19 10/06/19 11:59 23:59 11:59 Intake Total 1100 / 3110 20090 50 / 50 Output Total 550 / 550 1220 / 1220 Balance 1100 / 2560 1460 / 2560 -1170 / -1170 Intake: IV 1100 / 2120 1020 / 2120 50 / 50 Oral 240 / 240 Blood Product 750 / 750 Rbc Leuko Reduced Unit 250 / 250 [id number] Rbc Leuko Reduced Unit 500 / 500 [id number] Output: Urine 550 / 550 1220 / 1220 Other: Urine Color Light Rosie Light Rosie Urine Appearance Clear Clear Clear Urine Odor None Comment Pt voided in toliet, SOLUTION SPECIALIST did not observe. Pt stated that it was a monderate amount. Stool Size Moderate Stool Characteristics Soft Voiding Methods Urinal Toilet Data Completed and Pending Completed studies during hospitalization [Text1]: EXAM: XR PORTABLE CHEST AP CLINICAL HISTORY: syncope TECHNIQUE: COMPARISON: No exams were available for comparison FINDINGS: There is Port-A-Cath in position the tip of which overlies the SVC. Cardiac size is within normal limits. The lungs are clear and well expanded. IMPRESSION: No evidence of acute process. Labs on day of discharge: Labs from last 24 hours 10/06/19 10/06/19 10/06/19 07:25 07:25 02:15 WBC 0.37 L* D RBC 2.32 L Hgb 7.1 L Cancelled Hct 20.8 L* Cancelled MCV 89.7 MCH 30.6 MCHC 34.1 RDW 14.5 H Plt Count 43 L MPV 10.1 Immature Gran % 0.0 Neutrophils % 43.2 Lymphocytes % 51.4 Monocytes % 5.4 Eosinophils % 0.0 Basophils % 0.0 Nucleated RBC % 0 Absolute Neutrophils 0.16 L* Absolute Lymphocytes 0.19 L Absolute Monocytes 0.02 L Absolute Eosinophils 0.00 Absolute Basophils 0.00 RBC Morphology See below Hypochromasia 2+ Sodium 138 Potassium 3.7 Chloride 104 Carbon Dioxide 30.3 Anion Gap 3.7 BUN 14 D Creatinine 0.80 Estimated GFR/1.73 m2 >= 60.00 Glucose 95 Lactate Calcium 8.1 L Magnesium 1.2 L Patient ABO/Rh Antibody Screen Crossmatch 10/06/19 10/05/19 10/05/19 02:15 09:51 09:51 WBC RBC Hgb 7.2 L Hct 20.9 L* MCV MCH MCHC RDW Plt Count MPV Immature Gran % Neutrophils % Lymphocytes % Monocytes % Eosinophils % Basophils % Nucleated RBC % Absolute Neutrophils Absolute Lymphocytes Absolute Monocytes Absolute Eosinophils Absolute Basophils RBC Morphology Hypochromasia Sodium Potassium Chloride Carbon Dioxide Anion Gap BUN Creatinine Estimated GFR/1.73 m2 Glucose Lactate 1.0 Calcium Magnesium Patient ABO/Rh O Positive Antibody Screen Negative Crossmatch See Detail [facility] Medical History (Updated 10/06/19 @ 09:40 by Sofia Oates NP) Germ cell tumor of retroperitoneum (Acute) Hypokalemia (Resolved) Hypomagnesemia (Acute) Syncope (Chronic) Surgical History H/O esophagogastroduodenoscopy (Chronic) History of cholecystectomy (Chronic) Social History Smoking/Tobacco Use Status: Never Alcohol Intake: never Substance use type: does not use Additional Social history: unable to answer r/t in room.
[2019-10-06 10:57] VITALS: BP 119/86; PULSE 74; RESP 14; TEMP 36.3; O2SAT 98
--- NOTE | 2019-10-06 13:07 | PDOC.CMDIS ---
- If Service Date Differs Date of service: 10/06/19 Time of Service: 13:07 LACE Index Scoring Tool - Questions: Length of Stay (in days): 3 Acuity (Admit via E.D.?): Yes Comorbidities: Any Tumor E.D. Visits: 1 - Answers: Total Score: 9 Risk of Readmission: Low Risk Care Management Discharge Reason for Hospitalization: Syncope Discharge Plan: Maximo will return home with no additional services at this time. He reported that he is feeling well, and he is ready to discharge. He stated that he has a big [place] of support in the community. He recently had his last chemo treatment. His will drive him home via private vehicle when ready. He will follow up with his Oncologist and discharge plan of care. Patient/Family Education Needs: Review discharge instructions regarding activity levels and medications, discussion of self care needs including ask me three.
[2019-10-06] MEDS: Heparin 500 UNITS/5 ML SYRINGE IVP (13:42)
[2019-10-07 08:52] LABS: Platelet Count 81 10^3/uL (130-400)
== END 2019-10-06 14:03 | disposition home or self-care (01) ==
LOC: ER 16:03 → MS 16:35
PROVIDERS: Nurse Practitioner Family; Admitting Provider Internal Medicine; Emergency Provider Physician Assistant; PCP Family Medicine; Visit Provider Internal Medicine
DX: R55 Syncope and collapse (principal); E83.42 Hypomagnesemia; E87.6 Hypokalemia; R19.7 Diarrhea, unspecified; C48.0 Malignant neoplasm of retroperitoneum; D64.9 Anemia, unspecified; E86.0 Dehydration
CPT/HCPCS: 36415; 36430; 36591; 80048; 86850; 86900; 86901; 86920; 86945; 87505; 93005; 96361; 96365; 96366; 96368; 99217; 99220; 99226; 99285; U0003; 71045; 83605; 83735; 84132; 84484; 85014; 85018; 85025; 86644; 87324; 93010; G0378; J3475; J3480; P9016

== ENCOUNTER 2019-10-13 13:00 | Outpatient (RCR) | payer OTHER, SELFPAY ==
[2019-10-11] VITALS (9 sets, daily range): BP systolic 88–118; BP diastolic 64–82; PULSE 100–131; RESP 18–20; TEMP 36.4–37.1; O2SAT 98–100
[2019-10-11] MEDS: Normal Saline Flush 10 ML SYR IVP ×2 (12:40→14:32)
[2019-10-11 12:57] LABS: Abs Immature Grans 4.83 10^3/uL (0.0-0.06); HCT 23.4 % (40.0-50.0); HGB 7.9 g/dL (13.5-17.5); MCH 30.7 pg (27.0-33.0); MCHC 33.8 % (32.0-36.0); MCV 91.1 fL (80-95); MPV 11.9 fL (8.0-11.0); RBC 2.57 10^6/uL (4.36-5.78); RDW 14.6 % (11.8-14.1); RDW-SD 46.5 fL; WBC 19.67 10^3/uL (4.4-10.8)
[2019-10-11 13:10] LABS: ALT 24 U/L (16-63); AST 16 U/L (15-37); Albumin 3.5 g/dL (3.4-5.0); Alkaline Phosphatase 86 U/L (46-116); BUN 6 mg/dL (7-18); Bilirubin, Total 0.4 mg/dL (0.2-1.0); CREATININE 1.31 mg/dL (0.70-1.30); Calcium 8.7 mg/dL (8.5-10.1); Chloride 102 mmol/L (98-107); Glucose 100 mg/dL (74-106); Potassium 4.1 mmol/L (3.5-5.1); Sodium 139 mmol/L (136-145); Total Protein 6.3 g/dL (6.4-8.2)
[2019-10-11 13:13] LABS: Absolute Lymphocyte Count 0.59 10^3/uL (1.2-3.4); Absolute Monocyte Count 0.59 10^3/uL (0.1-0.8); Absolute Neutrophil Count 14.75 10^3/uL (1.2-6.7); Bands % 9; Metamyelocytes % 11; Myelocytes % 7; Nucleated RBC 3 %; Promyelocytes % 1
[2019-10-11 13:14] LABS: Diff Comment Manual Differential
[2019-10-11 13:16] LABS: Polychromasia Present
[2019-10-11 13:17] LABS: Platelet Count 27 10^3/uL (130-400)
[2019-10-11 14:14] LABS: Magnesium 1.1 mg/dL (1.8-2.4)
[2019-10-13] MEDS: Normal Saline Flush 10 ML SYR IVP (13:11)
[2019-10-13 13:14] LABS: Abs Immature Grans 3.48 10^3/uL (0.0-0.06); HCT 24.5 % (40.0-50.0); MCHC 32.7 % (32.0-36.0); MCV 91.8 fL (80-95); MPV 11.4 fL (8.0-11.0); RBC 2.67 10^6/uL (4.36-5.78); RDW 16.6 % (11.8-14.1); RDW-SD 50.4 fL
[2019-10-13 13:31] LABS: ALT 23 U/L (16-63); AST 15 U/L (15-37); Albumin 3.3 g/dL (3.4-5.0); Alkaline Phosphatase 94 U/L (46-116); Anion Gap 8.9 mmol/L (3-11); BUN 5 mg/dL (7-18); Bilirubin, Total 0.4 mg/dL (0.2-1.0); CO2 27.1 mmol/L (21.0-32.0); CREATININE 1.17 mg/dL (0.70-1.30); Calcium 8.3 mg/dL (8.5-10.1); Chloride 104 mmol/L (98-107); Glucose 103 mg/dL (74-106); Magnesium 0.9 mg/dL (1.8-2.4); Potassium 3.7 mmol/L (3.5-5.1); Sodium 140 mmol/L (136-145)
[2019-10-13 13:43] LABS: Absolute Neutrophil Count 13.92 10^3/uL (1.2-6.7); Bands % 1; Metamyelocytes % 7; Myelocytes % 5; Nucleated RBC 0 %
[2019-10-13 13:44] LABS: Anisocytosis 1+; Diff Comment Manual Differential; Polychromasia Present
[2019-10-13 13:45] LABS: Platelet Count 56 10^3/uL (130-400)
== END 2019-11-09 23:59 | disposition home or self-care (01) ==
LOC: INF 13:00
PROVIDERS: PCP Family Medicine; Visit Provider Internal Medicine
DX: C62.90 Malignant neoplasm of unspecified testis, unspecified whether descended or undescended (principal); Z45.2 Encounter for adjustment and management of vascular access device; C48.0 Malignant neoplasm of retroperitoneum; E86.0 Dehydration; D64.9 Anemia, unspecified
CPT/HCPCS: 36430; 36591; 80053; 86850; 86900; 86901; 86920; 86945; 96365; 83735; 85025; P9016